=== PATIENT | male | born 2000 | race Two or more races ===

== ENCOUNTER 2022-01-20 23:30 | Emergency (ER) | payer MEDICAID ==
[~2022-01-20] VITALS: Ht 172.7 cm; Wt 63.5 kg
[2022-01-20 23:55] VITALS: BP 132/77
[2022-01-21] MEDS ORDERED: BACI/NEOM/POLY B OINT PKT 1 UDPKT PACKET TP ONE (00:30)
== END 2022-01-21 00:29 | disposition home or self-care (01) ==
LOC: ER 23:37
DX: S80.812A Abrasion, left lower leg, initial encounter (principal); V49.9XXA Car occupant (driver) (passenger) injured in unspecified traffic accident, initial encounter; Y93.89 Activity, other specified; Y92.89 Other specified places as the place of occurrence of the external cause; Y99.8 Other external cause status